=== PATIENT | male | born 1935 | race Caucasian/White ===

== ENCOUNTER 2017-09-06 03:13 | Emergency (ER) | payer OTHER ==
[~2017-09-06] VITALS: Ht 170.2 cm; Wt 64.7 kg
[2017-09-06 03:58] LABS: HEMATOCRIT 49.1 % (38.0-50.0); HEMOGLOBIN 16.6 G/DL (12.5-16.6); MCH 32.2 PG (29.0-34.0); MCHC 33.8 G/DL (30.0-36.0); MCV 95.2 FL (86-99); PLATELET COUNT 207 K/uL (156-360); RBC DIS.WIDTH-CV 11.9 % (11.8-14.6); RBC DIS.WIDTH-SD 41.8 % (39-53); RED BLOOD COUNT 5.16 M/uL (4.00-5.50); WHITE BLOOD COUNT 7.3 K/uL (4.1-10.2)
[2017-09-06 04:01] LABS: ALBUMIN 4.1 g/dL (3.2-4.8); CHLORIDE 105 mEq/L (99-109); POTASSIUM 3.7 mEq/L (3.7-5.4); SODIUM 142 mEq/L (136-147)
[2017-09-06 04:04] LABS: GLUCOSE 143 mg/dL (70-99); TOTAL PROTEIN 7.1 g/dL (6.4-8.3)
[2017-09-06 04:06] LABS: TOTAL BILIRUBIN 0.4 mg/dL (0.0-1.0)
[2017-09-06 04:07] LABS: ALKALINE PHOSPHATASE 91 IU/L (3-129); CREATININE 1.1 mg/dL (0.6-1.3); GFR ESTIMATE (CALCULATED) > 59 mL/min/ (58.99-99999)
[2017-09-06 04:08] LABS: UREA NITROGEN (BUN) 15 mg/dL (9-23)
[2017-09-06 04:09] LABS: AST (GOT) 21 IU/L (2-34)
[2017-09-06 04:10] LABS: ALT (GPT) 19 IU/L (3-49)
[2017-09-06 05:26] LABS: LIPASE 25 U/L (1.0-51.0)
[2017-09-06 06:56] LABS: APPEARANCE CLEAR ((CLEAR)); BILIRUBIN NEGATIVE; BLOOD NEGATIVE; COLOR YELLOW ((YELLOW)); GLUCOSE (STRIP) NEGATIVE; KETONES NEGATIVE; LEUKOCYTES NEGATIVE; NITRITE NEGATIVE; PROTEIN (STRIP) NEGATIVE; SPECIFIC GRAVITY 1.016 (1.000-1.030); UCUL ADDED? NO; UROBILINOGEN 0.2 MG/DL (0.2-1.0)
[2017-09-06] MEDS ORDERED: FLOMAX0.4 MG PO (07:05)
[2017-09-06] MEDS ORDERED: ZOFRAN4 MG PO (07:05)
[2017-09-06] MEDS ORDERED: TORADOL10 MG PO (07:05)
[2017-09-06 07:34] VITALS: BP 137/68
== END 2017-09-06 07:35 | disposition home or self-care (01) ==
LOC: EME 03:13
DX: N13.2 Hydronephrosis with renal and ureteral calculous obstruction (principal); Z87.891 Personal history of nicotine dependence
CPT/HCPCS: 74176; 80053; 81003; 83690; 85027; 99281; 99285; J1885; J2405; J3010; J7030